=== PATIENT | male | born 1990 | race Caucasian/White ===

== ENCOUNTER 2017-08-02 05:55 | Observation (INO) | payer BC, SELFPAY ==
[2017-08-02 06:37] LABS: #Eosinphils 0.1 thou/uL (0.0-0.7); #Lymphocytes 2.5 thou/uL (1.20-3.40); #Monocytes 0.7 thou/uL (0.11-0.59); #Neutrophils 8.9 thou/uL (1.40-6.50); %Basophils 0.3 % (0.0-1.0); %Eosinophils 0.5 % (0.0-10.0); %Lymphocytes 20.5 % (21.0-51.0); %Monocytes 5.6 % (0.0-10.0); Hemoglobin 15.3 g/dL (14.0-18.0); Mean Corpuscular HGB CONC 34.2 g/dL (32.0-36.0); Mean Corpuscular Hemoglobin 30.5 pg (27.0-31.0); Mean Corpuscular Volume 89.3 fl (80.0-94.0); Mean Platelet Volume 7.5 fL (7.4-10.4); Platelet Count 264 thou/uL (130-400); RBC Distribution Width 11.3 % (11.5-14.5); Red Blood Cell (RBC) Count 5.01 mill/uL (4.70-6.10); White Blood Cell (WBC) Count 12.2 thou/uL (4.8-10.8)
[2017-08-02 06:58] LABS: ALT (SGPT) 16 U/L (8-55); AST (SGOT) 16 U/L (5-34); Alkaline Phosphatase 81 U/L (40-150); Anion Gap 12 mmol/L (10-20); BUN (Urea Nitrogen) Less than 4 mg/dL (8.9-20.6); Bilirubin, Total 0.2 mg/dL (0.2-1.2); CK (CPK) 66 U/L (30-200); Calc. Creatinine Clearance 0 mL/min (70-130); Calcium 8.6 mg/dL (7.8-10.44); Carbon Dioxide 21 mmol/L (22-29); Chloride 104 mmol/L (98-107); Estimated GFR-MDRD Greater than 90; Globulin 2.5 g/dL (2.4-3.5); Glucose 91 mg/dL (70-105); Potassium 3.3 mmol/L (3.5-5.1); Protein, Total 6.5 g/dL (6.0-8.3); Sodium 134 mmol/L (136-145)
[2017-08-02 07:11] LABS: CKMB 0.4 ng/mL (0-6.6); Troponin I Less than 0.010 ng/mL (< 0.028)
--- NOTE | 2017-08-02 08:14 | RAD ---
PORTABLE CHEST 1 VIEW: DATE: 08/02/17. TIME: 6:11 a.m. HISTORY: Chest pain. FINDINGS: Comparison is made to the exam of 12/03/10. The heart size is normal. No focal areas of consolidation, pneumothorax, or pleural effusions are se en. IMPRESSION: No radiographic evidence of acute cardiopulmonary process. POS: [facility]
[2017-08-02 10:01] LABS: Medtox Reader # READER 1
[2017-08-02 10:04] LABS: Amphetamine Not Detected (NotDetected); Barbiturates Screen Not Detected (NotDetected); Benzodiazepine Screen Not Detected (NotDetected); Cocaine Metabolite Screen Not Detected (NotDetected); Medtox Control Line Valid? VALID (VALID); Methadone Not Detected (NotDetected); Methamphetamine Not Detected (NotDetected); Opiate Screen Not Detected (NotDetected); Oxycodone Screen Not Detected (NotDetected); Phencyclidine (PCP) Not Detected (NotDetected); THC/Cannabinoid Screen Not Detected (NotDetected); Tricyclic Screen Detected (NotDetected)
[2017-08-02] MEDS ORDERED: Ondansetron HCl/PF 4 MG/2 ML Vial IVP PRN ×2 (11:08→19:23)
[2017-08-02] MEDS ORDERED: Ondansetron ODT 4 MG TAB PO PRN ×2 (11:08→19:23)
[2017-08-02] MEDS ORDERED: Acetaminophen 325 MG TAB PO PRN (11:09)
[2017-08-02 11:57] VITALS: BMI 31.8
[2017-08-02] MEDS ORDERED: Acetaminophen 500 MG TAB PO PRN (19:23)
[2017-08-02] MEDS ORDERED: Potassium Chloride 20 MEQ TAB PO SCH (19:30)
[2017-08-02] MEDS ORDERED: Nicotine 14 MG PATCH TD SCH (19:30)
[2017-08-02] MEDS: Famotidine 20 MG TAB PO SCH (20:21)
[2017-08-02] MEDS: Sodium Chloride 0.9% 1,000 ML IV SCH (20:39)
--- NOTE | 2017-08-02 21:02 | CT ---
HEAD CT WITHOUT CONTRAST 08/02/17 COMPARISON: 12/03/10 HISTORY: Syncopal episode, nausea and vomiting. TECHNIQUE: Serial axial CT imaging at 5 mm intervals from vertex through skull base without contrast. FINDINGS: The visualized paranasal sinuses and mastoid air cells are well aerated. There is no displaced calvar ial fracture, intracranial hemorrhage, midline shift of mass effect. IMPRESSION: No acute findings. POS: [facility]
--- NOTE | 2017-08-03 01:56 | HP ---
DATE OF ADMISSION: 08/02/2017 PRIMARY CARE PHYSICIAN: Dr. Mackey at the [facility]. CHIEF COMPLAINT: Passing out. HISTORY OF PRESENT ILLNESS: This is a 26-year-old male who presents to [facility] complaining of passing out approximately 4:00-4:30 a.m. at his home. The patient stat es he was up, watching TV, reclining when he noticed some chest pain and nausea. The patient states he sat up and had some episodes of emesis. They were spontaneous and abrupt. The patient apparently passed out after vomiting several times and was found by his on next door to retrieve another f mauricey member. The reports the patient was in and out of consciousness for over a 5-10 minute ti me frame and was moving his limbs and having some episodes of emesis lying on his side. No seizure a ctivity was noted and no fecal or urinary incontinence noted. No history of prior seizures per famil y report or patient. The patient denied any change to his activity level, alcohol intake, illicit dr ug use, recent travel history, unilateral leg swelling or shortness of breath. The patient denied an y known history of coronary artery disease or history of arrhythmia. The patient states he takes Ser oquel over many years for bipolar disorder and the dose has not been increased recently. The patient admits to drinking a Red Bull on nearly daily basis and states his last meal was approximately at 7- 8 p.m. the night before the incident occurred. No family members with similar symptoms or vomiting o r diarrhea. No fever or chills per patient report or cough or congestion. The patient does admit to smoking up to a pack of cigarettes daily. 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 The patient denied any recent surgical intervention, dental procedures, vision changes or headaches. The patient denied any unila teral weakness or difficulty with speech. In the emergency room, the patient underwent general evalu ation including metabolic screening showing evidence of mild hypokalemia with potassium of 3.3. Urin e drug screen showed tricyclics and portable chest x-ray showed no acute infiltrate. EKG was perform ed showing a normal sinus mechanism. The patient was referred to the Hospitalist Service for further evaluation. PAST MEDICAL HISTORY: 1. Bipolar disorder treated with Seroquel. 2. Tobacco abuse. 3. History of gastroesophageal reflux disease as a child. PAST SURGICAL HISTORY: Reviewed and negative. CURRENT MEDICATIONS: Seroquel 50 mg p.o. at bedtime. ALLERGIES: KEFLEX. FAMILY HISTORY: Positive for seizure disorder. Mother with history of TIA. SOCIAL HISTORY: The patient is , resides in [place], [place]. [id number] father, taking care of two children. Smokes up to a pack of cigarettes daily. Occasional alcohol use. No illicit drug use. Accompanied by his mother and in the hospital. REVIEW OF SYSTEMS: The following complete review of systems was negative, unless otherwise mentioned in the HPI or below: Constitutional: Weight loss or gain, ability to conduct usual activities. Sk in: Rash, itching. Eyes: Double vision, pain. ENT/Mouth: Nose bleeding, neck stiffness, pain, te nderness. Cardiovascular: Palpitations, dyspnea on exertion, orthopnea. Respiratory: Shortness of breath, wheezing, cough, hemoptysis, fever or night sweats. Gastrointestinal: Poor appetite, abdom inal pain, heartburn, nausea, vomiting, constipation, or diarrhea. Genitourinary: Urgency, frequenc y, dysuria, nocturia. Musculoskeletal: Pain, swelling. Neurologic/Psychiatric: Anxiety, depressio n. Allergy/Immunologic: Skin rash, bleeding tendency. Otherwise negative except as stated per HPI. PHYSICAL EXAMINATION: VITAL SIGNS: On admission, blood pressure 130/73, pulse 90, respiratory rate 14, temperature 97.5 de grees Fahrenheit, O2 saturation 93% on room air. GENERAL APPEARANCE: This is a 26-year-old male, alert and oriented x3, pleasant, in no acu te distress. HEENT: Pupils are equal, round, and reactive to light and accommodation. Extraocular muscles are in tact. No scleral icterus, no conjunctival injection. Nares patent. OP is clear. Teeth in fair rep air. NECK: Supple, no cervical adenopathy, no thyromegaly, no carotid bruits, no JVD appreciated. Cervic al spine full active and passive range of motion. No meningeal signs appreciated. Scalp is atraumat ic. CHEST: Lungs are clear to auscultation bilaterally. Diminished in the bases. CARDIOVASCULAR: S1, S2, without noted murmur, rub or gallop. ABDOMEN: Rounded, soft, nontender, nondistended. Bowel sounds are positive in all four quadrants. There is no hepatosplenomegaly, no abdominal bruits, no rebound or guarding appreciated. EXTREMITIES: Warm and dry with good turgor. No clubbing, cyanosis or asymmetric edema appreciated. Pulses palpable distally at the dorsalis pedis, posterior tibial, and popliteal arteries bilaterally . Capillary refill less than 2 seconds. NEUROLOGIC: Cranial nerves II-XII are grossly intact. No focal or lateralizing signs appreciated. PERTINENT LABORATORY AND X-RAY FINDINGS: Sodium 134, potassium 3.3, chloride 104, CO2 of 21, BUN les s than 4. Creatinine 0.81, estimated GFR greater than 90, glucose 91, calcium 8.6. LFTs within norm al limits. Troponin I negative x1. CBC showed a white blood cell count of 12.2, hemoglobin 15, rik tocrit 45, platelet count 264 with normal differential. D-dimer less than 0.27. Urine drug screen p ositive for tricyclics. Portable chest x-ray dated 08/02/2017 showed no acute cardiopulmonary proces s. EKG dated 08/02/2017 by my interpretation shows sinus mechanism with heart rates in the 90s. Nor mal R-wave progression noted in the precordial leads. Normal axis. T-wave inversion in lead II, III and F. ASSESSMENT AND PLAN: 1. Syncope. The patient will be placed in observation status on the telemetry unit. Exact etiology unclear. Questionable seizure activity versus cardiogenic source versus dehydration and volume depl etion. We will continue intravenous normal saline at 100 mL per hour. Check CT imaging of the brain without contrast. Check 2D transthoracic echocardiogram for ejection fraction and valvular function . Check TSH and magnesium level. Continue telemetry monitoring to rule out occult arrhythmia. 2. Hypokalemia. Potassium chloride 40 mEq x1 dose now. Repeat potassium level in the a.m. 3. Bipolar disorder. Continue Seroquel 50 mg p.o. at bedtime. 4. Tobacco use. We will offer smoking cessation resources prior to discharge. Nicotine transdermal 14 mg daily. 5. Prophylaxis. Sequential compression devices while in bed. Pepcid 20 mg p.o. b.i.d. 6. Code status is FULL. Surrogate medical decision maker is patient's spouse.
[2017-08-03 05:12] LABS: Anion Gap 10 mmol/L (10-20); BUN (Urea Nitrogen) 6 mg/dL (8.9-20.6); Calc. Creatinine Clearance 198 mL/min (70-130); Calcium 8.7 mg/dL (7.8-10.44); Carbon Dioxide 25 mmol/L (22-29); Chloride 109 mmol/L (98-107); Estimated GFR-MDRD Greater than 90; Glucose 105 mg/dL (70-105); Magnesium 2.3 mg/dL (1.6-2.6); Sodium 140 mmol/L (136-145)
[2017-08-03 05:23] LABS: Band 2 % (5-11); Eosinophils 1 % (0-10); Hemoglobin 15.5 g/dL (14.0-18.0); Lymphocytes 40 % (21-51); MDiff Complete? YES; Mean Corpuscular HGB CONC 34.1 g/dL (32.0-36.0); Mean Corpuscular Hemoglobin 30.5 pg (27.0-31.0); Mean Corpuscular Volume 89.4 fl (80.0-94.0); Mean Platelet Volume 7.5 fL (7.4-10.4); Monocytes 3 % (0-10); Neutrophil 54 % (42-75); PLT Morphology Comment Appears Adequate; Platelet Count 261 thou/uL (130-400); RBC Distribution Width 11.4 % (11.5-14.5); Red Blood Cell (RBC) Count 5.06 mill/uL (4.70-6.10); White Blood Cell (WBC) Count 10.9 thou/uL (4.8-10.8)
[2017-08-03] MEDS: Sodium Chloride 0.9% 1,000 ML IV SCH (05:30)
[2017-08-03] MEDS: Famotidine 20 MG TAB PO SCH (10:10)
[2017-08-03 12:08] VITALS: BP 131/65; TEMP 97.4
--- NOTE | 2017-08-03 14:21 | DIS ---
DATE OF ADMISSION: 08/02/2017 DATE OF DISCHARGE: 08/03/2017 DISCHARGE DIAGNOSES: 1. Syncopal episode, suspected. Etiology unclear, likely idiopathic. 2. Hypokalemia, mild, resolved. 3. Bipolar disorder, stable. 4. Tobacco use. CONSULTATIONS: None. PERTINENT LAB AND X-RAY FINDINGS: Potassium ranged between 3.3-4.0, creatinine ranged between 0.79-0 .81. LFTs within normal limits. Troponin I negative x1. TSH 0.90. CBC showed a white blood cell c ount ranging between 10.9-12.2. Urine drug screen positive for tricyclics. Portable chest x-ray cary ed 08/02/2017 showed no acute cardiopulmonary process. CT of the brain without contrast dated 2017 showed no acute intracranial process. 2-D transthoracic echocardiogram dated 08/02/2017 pending at the time of this dictation. HOSPITAL COURSE: The patient was observed on the telemetry unit after initially presenting status po st suspected syncopal episode. The patient underwent general evaluation including metabolic assessme nt and neuro imaging to include CT of the brain. No specific evidence of etiology was identified dur ing the hospital course. Telemetry monitoring showed sinus mechanism without evidence of acute arrhy thmia or dysrhythmia. Metabolic survey was essentially unrevealing with mild hypokalemia, corrected with potassium supplementation. The patient was noted with positive tricyclics on urine drug screen, which is a cross reaction to current Seroquel. The patient remained clinically stable throughout th e hospital course, tolerating regular oral intake, ambulating without assistance or difficulty, voidi ng appropriately and remaining clinically stable. I examined the patient at the time of discharge, d iscussed pertinent labs and radiology studies as well as plans for followup. The patient verbalizes understanding and agreement and we will discharge 08/03/2017. DISCHARGE MEDICATIONS: Seroquel 50 mg p.o. at bedtime. FOLLOWUP: The patient will follow up with his primary care provider, Dr. Mackey at the [facility] within 7 days of discharge. CONDITION ON DISCHARGE: Stable. ACTIVITY: Ad mahendra. DIET: Regular. CODE STATUS: Full. DISPOSITION: Home, 08/03/2017.
== END 2017-08-03 14:30 | disposition home or self-care (01) ==
LOC: ERS 05:55 → 2SW 09:44
PROVIDERS: ADMIT Family Medicine; ATTEND Family Medicine
DX: R55 Syncope and collapse (principal); E87.6 Hypokalemia; F31.9 Bipolar disorder, unspecified; K21.9 Gastro-esophageal reflux disease without esophagitis; F17.210 Nicotine dependence, cigarettes, uncomplicated; Z79.899 Other long term (current) drug therapy; Z88.1 Allergy status to other antibiotic agents
CPT/HCPCS: 36415; 70450; 71045; 80048; 80053; 80306; 82550; 82553; 83735; 84443; 84484; 85007; 85025; 85027; 85379; 93005; 93306; 96360; 96361; G0378